=== PATIENT | female | born 1995 | race Caucasian/White ===

== ENCOUNTER 2019-02-01 02:50 | Inpatient (IN) | payer MEDICAID ==
[2019-02-01] VITALS (11 sets, daily range): BP systolic 108–140; BP diastolic 60–91
[~2019-02-01] VITALS: Ht 162.5 cm; Wt 85.9 kg
--- NOTE | 2019-02-01 18:51 | NUR ---
DAGO OSORIO presented to unit via AMBULATORY from HOME, accompanied by FAMILY FOR INDUCTION OF LABOR. DAGO OSORIO weighed, gowned, voided, and to bed. EFHM and TOCO applied, VS taken. DAGO OSORIO oriented to bed controls, call light, TV, heat, and A/C controls.
[2019-02-01] MEDS ORDERED: LACTATED RINGERS 1,000 ML IV SCH (19:37)
[2019-02-01] MEDS ORDERED: D5 LR IV SOLUTION 1,000 ML IV SCH (19:37)
[2019-02-01] MEDS ORDERED: TERBUTALINE INJ 1 MG/ML (BRETHINE) AMP SC PRN (19:45)
[2019-02-01] MEDS ORDERED: MISOPROSTOL 100 MCG (CYTOTEC) TAB PV PRN (19:45)
[2019-02-01 20:57] LABS: BASOPHILS % (AUTO) 0 % (0-10); EOSINOPHILS # (AUTO) 0.2 10^3/uL (0.0-0.3); EOSINOPHILS % (AUTO) 2 % (0-10); HEMATOCRIT 38 % (35-52); HEMOGLOBIN 12.8 G/DL (11.5-16.0); LYMPHOCYTES # (AUTO) 2.9 X 10^3 (1.0-4.0); LYMPHOCYTES % (AUTO) 24 % (12-44); MEAN CORPUSCULAR HEMOGLOBIN 30 PG (25-34); MEAN CORPUSCULAR HGB CONC 34 G/DL (32-36); MEAN CORPUSCULAR VOLUME 87 FL (80-99); MEAN PLATELET VOLUME 10.4 FL (7.4-10.4); MONOCYTES # (AUTO) 0.7 X 10^3 (0.0-1.0); MONOCYTES % (AUTO) 6 % (0-12); NEUTROPHILS # (AUTO) 8.4 X 10^3 (1.8-7.8); NEUTROPHILS % (AUTO) 69 % (42-75); PLATELET COUNT 254 10^3/uL (130-400); RED CELL DISTRIBUTION WIDTH 13.7 % (10.0-14.5); WHITE BLOOD COUNT 12.2 10^3/uL (4.3-11.0)
[2019-02-01] MEDS ORDERED: CATHETER FLUSH 10 ML SYR IV SCH (22:00)
[2019-02-01] MEDS ORDERED: FAMOTIDINE 20MG/2ML IV (PEPCID) ONE (23:09)
[2019-02-01] MEDS ORDERED: METOCLOPRAMIDE INJ 10 MG/2 ML (REGLAN) ONE (23:09)
[2019-02-01] MEDS ORDERED: CITRIC ACID/SOB CIT (BICITRA) 30 ML UDC ONE (23:09)
[2019-02-01] MEDS ORDERED: LACTATED RINGERS 0 ML IV ONE (23:10)
[2019-02-02] VITALS (31 sets, daily range): BP systolic 99–145; BP diastolic 55–92
[2019-02-02] MEDS ORDERED: SUFENTA 0.6MCG/ML BUPIVA 0.125 100 ML ONE (04:12)
[2019-02-02] MEDS ORDERED: BUPIVACAINE SPINAL 0.75% (SENSORCAINE) 2 ML AMP ONE (04:27)
[2019-02-02] MEDS ORDERED: LIDOCAINE/EPI 2% 1:200,00 (XYLOCAINE) 10 ML VIAL ONE (04:31)
[2019-02-02] MEDS ORDERED: OXYTOCIN/NORMAL SALINE 500 ML IV ONE ×2 (04:31→05:31)
--- NOTE | 2019-02-02 04:45 | NUR ---
of female . Nuchal x1, to mother's chest. see notes. 0455-placenta delivered. Pitocin started. 0505-perinum repaired per dr Thayer.
--- NOTE | 2019-02-02 04:51 | Progress Note ---
Standard Progress Note Progress Notes/Assess & Plan Date Seen by a Provider: Feb 02, 2019 Time Seen by a Provider: 04:30 Progress/Assessment & Plan Called to OB for Labor pain management. Upon arrival to Pt room pt states the urge to push. Dr. Thayer preformed a vaginal exam and patient was complete. At this time pt is too far dilatated for Labor Pain management. GINETTE BARRAGAN CRNA Feb 02, 2019 04:51
--- NOTE | 2019-02-02 05:15 | NUR ---
Fundus firm at umbilicus. moderate flow. no clots noted. ria care done 0530-fundus firm. pads changed 0545-fundus firm
--- NOTE | 2019-02-02 05:42 | OB Labor & Delivery Record ---
Vag Delivery Note Vag Delivery Note Date of Delivery: 02/02/19 Preoperative Diagnosis: Ivanna Verdugo is a 23 /Para 1/0 ,Gestational Age (wks)40with 4 days Postoperative Diagnosis: Same Surgeon: MICHELLE SIMS Cloth Shrinking Supervisor: Regina [place], OMS3 Anesthesia: None Delivery Type: Spontaneous vaginal delivery Findings: Viable female , apgars 7/8, weight 6#9 Lacerations: Intact placenta with 3 vessel cord. Nuchal cord x 1, delivered through, body cord or shoulder dystocia Estimated Blood Loss: 350 ml Complications: None Condition: Stable Description of Procedure: The patient is a 23 year old female who presented for induction of labor due to approaching postdates. She was admitted and informed consent was obtained. Her labor course was remarkable for intermittent prolonged decelerations with good recovery and long periods of category I tracing between decelerations, possible terminal bradycardia for last 10 minutes prior to delivery- unable to trace heart tones well. She progressed to complete dilatation and began to push. She was then set up for delivery. The 's head was delivered atraumatically in the DAVE position. Nuchal cord x 1 delivered through. The shoulders and remainder of the infant's body were then delivered without difficulty. Upon delivery, the infant was placed on maternal abdomen. The cord was doubly clamped and cut and the infant was handed off to the pediatric staff. An intact placenta with 3-vessel cord delivered via Dennis and there was found to be minimal bleeding.~ Vigorous fundal massage was performed and the fundus was found to be firm. IV oxytocin was given. Examination of the vagina and perineum revealed a right periurethral laceration repaired in the usual fashion with 3-0 Rapide suture. Following the repair, sponge, instrument and needle counts were correct. Mom and baby were both in stable condition in the labor suite. Vitals - Labs Vital Signs - I&O Vital Signs Date Time Temp Pulse Resp B/P (MAP) Pulse Ox O2 Delivery O2 Flow Rate FiO2 02/02/19 00:00 75 20 111/55 (73) Non Rebreather 15.00 02/01/19 23:40 36.5 72 18 130/79 (96) Non Rebreather 15.00 02/01/19 23:20 95 18 140/91 (107) Non Rebreather 15.00 02/01/19 23:00 72 18 137/74 (95) 02/01/19 22:56 Non Rebreather 15.00 02/01/19 22:40 72 137/74 (95) 15.00 02/01/19 22:20 72 18 123/60 (81) 02/01/19 22:00 69 18 124/76 (92) 02/01/19 21:40 73 18 115/70 (85) 02/01/19 21:20 72 18 108/68 (81) 02/01/19 20:40 36.4 82 18 128/78 (95) 02/01/19 19:45 90 18 124/79 (94) 02/01/19 19:30 36.3 90 18 117/76 (90) Labs Laboratory Tests 02/01/19 20:30: White Blood Count 12.2H, Red Blood Count 4.31L, Hemoglobin 12.8, Hematocrit 38, Mean Corpuscular Volume 87, Mean Corpuscular Hemoglobin 30, Mean Corpuscular Hemoglobin Concent 34, Red Cell Distribution Width 13.7, Platelet Count 254, Mean Platelet Volume 10.4, Neutrophils (%) (Auto) 69, Lymphocytes (%) (Auto) 24, Monocytes (%) (Auto) 6, Eosinophils (%) (Auto) 2, Basophils (%) (Auto) 0, Neutrophils # (Auto) 8.4H, Lymphocytes # (Auto) 2.9, Monocytes # (Auto) 0.7, Eosinophils # (Auto) 0.2, Basophils # (Auto) 0.0 MICHELLE SIMS MD Feb 02, 2019 05:42
--- NOTE | 2019-02-02 05:48 | History & Physical-OB ---
OB - Chief Complaint & HPI Date/Time Date of Admission: Date of Admission: Feb 01, 2019 at 18:51 Date seen by a Provider: Feb 02, 2019 Time Seen by a Provider: 23:10 Chief Complaint/History OB-Reason for Admission/Chief: Induction of Labor Hx : 1 Hx Para: 0 Expected Date of Delivery: Jan 30, 2019 Gestational Age in Weeks: 40 Gestational Age in Days: 2 History of Labs A+, antibody neg, RI. HIV/HepB/RPR NR, GBS neg. Allergies and Home Medications Allergies Coded Allergies: No Known Drug Allergies (Unverified , 02/01/19) Patient Home Medication List Home Medication List Reviewed: No OB - History Hx of Present Ultrasounds: Normal mid trimester US Information Induced Hypertension: No Maternal Gestational Diabetes: No Hemorrhage: No Obstetrical History Hx : 1 Hx Para: 0 Hx # Term Pregnancies: 0 Hx # Pregnancies: 0 Number of Living Children: 0 Hx Termination: No Hx Multiple Gestation: No Hx Ectopic : No Hx Stillbirth: No Hx Complication: No Hx Induced Hypertens: No Hx Maternal Gestational Diabet: No Hx Hemorrhage: No Delivery History Hx Dystocia: No Hx Forceps Assisted Delivery: No Hx Vacuum Extraction Assisted: No Hx Placenta Abnormality: No Hx Distress: No Hx Large For Gestational Age I: No Hx Small for Gestational Age I: No Hx Section: No Hx Vaginal Delivery Post C-Sec: No Hx Blood Disorders: No Adverse Rxn to Tranfusion: No Patient Past Medical History PMHx: Depression SurgHx: None Social History/Family History HIV/AIDS: No Recent Infectious Disease Expo: No Sexually Transmitted Disease: No Alcohol Use: Denies Use Recreational Drug Use: No Smoking Cessation: Never smoker Immunizations Hepatitis A: Yes Hepatitis B: Yes Rubella: immune RPR/VDRL: Negative GBS Status: Negative HBsAG: Negative OB - Admission Exam Physical Exam Vitals: Vital Signs 02/01/19 02/02/19 23:40 00:00 Temp 36.5 Pulse 75 Resp 20 B/P (MAP) 111/55 (73) O2 Delivery Non Rebreather O2 Flow Rate 15.00 Abdomen: Gravid Cervical Dilatation: 2cm Effacement: 50% Station: 0 Membranes: Intact Heart Rate: 140's Decelerations: Prolonged Decelerations Short Term Variability: Present Tooth Clerk Variability: Average (6-25) Contractions on Admission: None Contreras Scoring Tool (Modified) Dilation (cm): 1-2cm (1) Effacement (%): 0-30% (0) Descent/Station: -3 (0) Cervix Consistency: Soft (2) Cervix Position: Middle/Mid-Position (1) Subtract 1 point for: Nulliparity (-1) Contreras Score: 3 Labs Laboratory Tests Test 02/01/19 20:30 Range/Units White Blood Count 12.2 H 4.3-11.0 10^3/uL Red Blood Count 4.31 L 4.35-5.85 10^6/uL Hemoglobin 12.8 11.5-16.0 G/DL Hematocrit 38 35-52 % Mean Corpuscular Volume 87 80-99 FL Mean Corpuscular Hemoglobin 30 25-34 PG Mean Corpuscular Hemoglobin Concent 34 32-36 G/DL Red Cell Distribution Width 13.7 10.0-14.5 % Platelet Count 254 130-400 10^3/uL Mean Platelet Volume 10.4 7.4-10.4 FL Neutrophils (%) (Auto) 69 42-75 % Lymphocytes (%) (Auto) 24 12-44 % Monocytes (%) (Auto) 6 0-12 % Eosinophils (%) (Auto) 2 0-10 % Basophils (%) (Auto) 0 0-10 % Neutrophils # (Auto) 8.4 H 1.8-7.8 X 10^3 Lymphocytes # (Auto) 2.9 1.0-4.0 X 10^3 Monocytes # (Auto) 0.7 0.0-1.0 X 10^3 Eosinophils # (Auto) 0.2 0.0-0.3 10^3/uL Basophils # (Auto) 0.0 0.0-0.1 10^3/uL OB - Assessment/Plan/Diagnosis Assessment Assessment: induction of labor Admission Dx Induction of labor 40 weeks gestation Admission Status: Inpatient Order (span 2 midnights) Reason for Inpatient Admission: Induction, labor and delivery and course Plan Induction Method: per Misoprostol Protocol Other Plan Intermittent deep, prolonged decelerations noted with resolution to category I tracing for 30-60 minutes between, will monitor very closely, have low threshold for . MICHELLE SIMS MD Feb 02, 2019 05:48
[2019-02-02] MEDS ORDERED: IBUPROFEN 600 MG (MOTRIN) TAB PO ONE (07:15)
--- NOTE | 2019-02-02 07:46 | NUR ---
report given to Mery Heller
--- NOTE | 2019-02-02 08:00 | NUR ---
CARE ASSUMED OF THIS PT. ASSISTED UP TO THE BATHROOM. VOIDED LARGE AMOUNT. PERICARE WITH PAD CHANGE. FF U/1. VAG FLOW LT/MOD RUBRA. GOWN CHANGE.
[2019-02-02] MEDS ORDERED: BENZOCAINE/MENTHOL (DERMOPLAST) 56 ML CAN TP ONE (08:15)
[2019-02-02] MEDS ORDERED: WITCH HAZEL(TUCKS) 40 EA JAR ONE (08:15)
--- NOTE | 2019-02-02 08:15 | NUR ---
TRANSFERRED TO ROOM 312 VIA W/C IN STABLE CONDITION ACC BY THIS RN, FRIEND, AND S.O. ASSISTED TO BED. ORIENTED TO SURROUNDINGS, CALL LIGHT OPERATION, ROOM SERVICE PROCEDURE, AND INFORMATION PAPERS. FF U/1. VAG FLOW LIGHT RUBRA.
[2019-02-02] MEDS ORDERED: OXYTOCIN/NORMAL SALINE 500 ML IV SCH (08:50)
[2019-02-02] MEDS ORDERED: WITCH HAZEL(TUCKS) 40 EA JAR TOP PRN (09:00)
[2019-02-02] MEDS ORDERED: BENZOCAINE/MENTHOL (DERMOPLAST) 56 ML CAN TP PRN (09:00)
[2019-02-02] MEDS ORDERED: TETANUS,DIPTH,PERTUSS P/F (BOOSTRIX) 0.5 ML VIAL IM ONE (09:00)
--- NOTE | 2019-02-02 09:00 | NUR ---
FF U/1. VAG FLOW LT/MOD RUBRA. DENIES NEED FOR ICE PACK. ORDERING BREAKFAST. REMAINS IN ROOM. FAMILY AT BEDSIDE. GOOD INTERACTION NOTED.INFORMED OF NEED TO ASK FOR ASSISTANCE NEEDED IF LIGHTHEADED WHEN GETTING UP.
--- NOTE | 2019-02-02 11:00 | NUR ---
CONTINUES TO DO WELL. STATES VOIDED AGAIN AND PERFORMED PERICARE WITHOUT PROBLEMS. FAMILY REMAINS AT BEDSIDE. INFANT REMAINS IN ROOM.
[2019-02-02] MEDS: IBUPROFEN 600 MG (MOTRIN) TAB PO SCH ×2 (12:35→18:15)
[2019-02-02] MEDS: DOCUSATE SODIUM 100 MG (COLACE) CAP PO SCH (12:35)
[2019-02-02] MEDS ORDERED: CATHETER FLUSH 10 ML SYR IV SCH (14:00)
--- NOTE | 2019-02-02 14:00 | NUR ---
NO CHANGE IN STATUS. CONTINUES TO DENY PAIN.
--- NOTE | 2019-02-02 16:30 | NUR ---
VSS. PT HAS BEEN RESTING IN ROOM. FAMILY AND AT BEDSIDE. DENIES ANY WANTS OR NEEDS.
--- NOTE | 2019-02-02 18:15 | NUR ---
ROUTINE MOTRIN GIVEN. PT. DECLINED FLU AND TDAP.
[2019-02-03] MEDS: IBUPROFEN 600 MG (MOTRIN) TAB PO SCH ×4 (00:17→18:20)
[2019-02-03] MEDS: DOCUSATE SODIUM 100 MG (COLACE) CAP PO SCH ×2 (00:17→10:49)
[2019-02-03 00:20] VITALS: BP 117/66
[2019-02-03 05:17] VITALS: BP 104/59
[2019-02-03 06:34] LABS: BASOPHILS % (AUTO) 0 % (0-10); EOSINOPHILS # (AUTO) 0.2 10^3/uL (0.0-0.3); EOSINOPHILS % (AUTO) 2 % (0-10); HEMATOCRIT 36 % (35-52); HEMOGLOBIN 11.9 G/DL (11.5-16.0); LYMPHOCYTES # (AUTO) 3.4 X 10^3 (1.0-4.0); LYMPHOCYTES % (AUTO) 33 % (12-44); MEAN CORPUSCULAR HEMOGLOBIN 29 PG (25-34); MEAN CORPUSCULAR HGB CONC 33 G/DL (32-36); MEAN CORPUSCULAR VOLUME 89 FL (80-99); MEAN PLATELET VOLUME 9.9 FL (7.4-10.4); MONOCYTES # (AUTO) 0.6 X 10^3 (0.0-1.0); MONOCYTES % (AUTO) 6 % (0-12); NEUTROPHILS # (AUTO) 6.3 X 10^3 (1.8-7.8); NEUTROPHILS % (AUTO) 60 % (42-75); PLATELET COUNT 217 10^3/uL (130-400); RED CELL DISTRIBUTION WIDTH 14.2 % (10.0-14.5); WHITE BLOOD COUNT 10.5 10^3/uL (4.3-11.0)
--- NOTE | 2019-02-03 07:40 | Progress Note ---
Subjective Subjective/Events-last exam Afebrile, no acute events. Denies chest pain, shortness of breath dizziness. Bleeding decreasing, pain controlled. Objective Exam Last Set of Vital Signs Vital Signs Date Time Temp Pulse Resp B/P (MAP) Pulse Ox O2 Delivery O2 Flow Rate FiO2 02/03/19 05:17 36.7 73 18 104/59 (74) 99 Room Air 02/02/19 04:20 15.00 Capillary Refill : I&O Intake and Output 02/03/19 00:00 Intake Total 500 ml Balance 500 ml Intake IV Total 500 ml Results/Procedures Lab Laboratory Tests 02/03/19 06:21: White Blood Count 10.5, Red Blood Count 4.07L, Hemoglobin 11.9, Hematocrit 36, Mean Corpuscular Volume 89, Mean Corpuscular Hemoglobin 29, Mean Corpuscular Hemoglobin Concent 33, Red Cell Distribution Width 14.2, Platelet Count 217, Mean Platelet Volume 9.9, Neutrophils (%) (Auto) 60, Lymphocytes (%) (Auto) 33, Monocytes (%) (Auto) 6, Eosinophils (%) (Auto) 2, Basophils (%) (Auto) 0, Neutrophils # (Auto) 6.3, Lymphocytes # (Auto) 3.4, Monocytes # (Auto) 0.6, Eosinophils # (Auto) 0.2, Basophils # (Auto) 0.0 Assessment/Plan Assessment/Plan (1) (spontaneous vaginal delivery) Status: Acute Assessment & Plan: Routine care Clinical Quality Measures DVT/VTE Risk/Contraindication: Risk Factor Score Per Nursin RFS Level Per Nursing on Admit: 1=Low/No VTE PPX MICHELLE SIMS MD Feb 03, 2019 07:40
[2019-02-03 08:00] VITALS: BP 115/63
--- NOTE | 2019-02-03 08:00 | NUR ---
CARING FOR INFANT IN ROOM. DOING WELL. S.O. AT BEDSIDE.
--- NOTE | 2019-02-03 10:00 | NUR ---
OFFERS NO COMPLAINTS. FAMILY AT BEDSIDE. .
[2019-02-03 13:00] VITALS: BP 128/71
--- NOTE | 2019-02-03 13:00 | NUR ---
CONTINUES TO CARE FOR IN ROOM. DENIES ANY PAIN.
[2019-02-03] MEDS ORDERED: IBUP-844 PO (13:12)
[2019-02-03] MEDS ORDERED: PREN-142 PO (13:15)
--- NOTE | 2019-02-03 13:16 | Discharge Instructions ---
Discharge Inst-Women[facility] Serv Depart Medications New, Converted or Re-Newed RX: Transmitted to Pharmacy New Medications: Vit No.124/Iron/FA ( Vitamin Tablet) 1 Each Tablet 1 EACH PO DAILY, #30 TAB 11 Refills Ibuprofen (Ibu) 600 Mg Tablet 600 MG PO Q6HR PRN for PAIN-MODERATE, #60 TAB 0 Refills Follow Up/Instructions Goal/Follow Up: Follow up with Dr. Thayer in 6 weeks for visit. Activity Activity: Activity as Tolerated (avoid strenuous activity x 6 weeks) Driving Instructions: You May Drive NO SMOKING: NO SMOKING Nothing Inside Vagina: No Douching, No [place], No Tampons Diet Discharge Diet: No Restrictions Symptoms to Report to : Bleeding Excessive, Fever Over 101 Degrees F, Pain/Pressure in Chest, Vaginal Bleeding Increase, Vaginal Discharge Foul, Shortness of Breath For Any Problems or Questions: Contact Your Physician Copies To 1: MICHELLE THAYER MD, BETHANY N MD Feb 03, 2019 13:16
--- NOTE | 2019-02-03 15:56 | Discharge Summary ---
Discharge Summary Hospital Course Problems Reviewed?: Yes Problems/Diagnosis: (1) (spontaneous vaginal delivery) Status: Acute Assessment & Plan: Routine care (2) Encounter for induction of labor Status: Resolved Resolution Date/Time: 02/03/19 @ 15:55 Hospital Course Date of Admission: Feb 01, 2019 at 18:51 Admission Diagnosis : Family Physician/Provider: Michelle Thayer MD Date of Discharge: 02/03/19 Discharge Diagnosis: See problems Hospital Course: Uncomplicated spontaneous vaginal delivery with routine course. Labs and Pending Lab Test: Laboratory Tests 02/03/19 06:21: White Blood Count 10.5, Red Blood Count 4.07L, Hemoglobin 11.9, Hematocrit 36, Mean Corpuscular Volume 89, Mean Corpuscular Hemoglobin 29, Mean Corpuscular Hemoglobin Concent 33, Red Cell Distribution Width 14.2, Platelet Count 217, Mean Platelet Volume 9.9, Neutrophils (%) (Auto) 60, Lymphocytes (%) (Auto) 33, Monocytes (%) (Auto) 6, Eosinophils (%) (Auto) 2, Basophils (%) (Auto) 0, Neutrophils # (Auto) 6.3, Lymphocytes # (Auto) 3.4, Monocytes # (Auto) 0.6, Eosinophils # (Auto) 0.2, Basophils # (Auto) 0.0 Home Meds Active Vitamin Tablet ( Vit No.124/Iron/FA) 1 Each Tablet 1 Each PO DAILY Ibu (Ibuprofen) 600 Mg Tablet 600 Mg PO Q6HR PRN Assessment/Pt DC Instructions See above Discharge Physical Examination Allergies: Coded Allergies: No Known Drug Allergies (Unverified , 02/01/19) General Appearance: No Apparent Distress, WD/WN Respiratory: Lungs Clear, Normal Breath Sounds Cardiovascular: Regular Rate, Rhythm, No Murmur Skin: Normal Color, Warm/Dry Neurologic/Psychiatric: Alert, Normal Mood/Affect Discharge Summary Date of Admission Feb 01, 2019 at 18:51 Date of Discharge Discharge Date: Feb 03, 2019 Clinical Quality Measures DVT/VTE Risk/Contraindication: Risk Factor Score Per Nursin RFS Level Per Nursing on Admit: 1=Low/No VTE PPX MICHELLE THAYER MD Feb 03, 2019 15:56
[2019-02-03 16:30] VITALS: BP 115/79
--- NOTE | 2019-02-03 16:35 | NUR ---
DISCHARGE INSTRUCTIONS REVIEWED WITH COPY TO PT. STATES UNDERSTANDING OF ALL INSTRUCTIONS AND NEED TO F/U SCHEDULED AND NEEDED.
[2019-02-03 18:30] VITALS: BP 115/79
--- NOTE | 2019-02-03 18:30 | NUR ---
DISMISSED FROM WS IN STABLE CONDITION. PT WILL REMAIN A ROOMING IN PARENT R/T INFANT NEEDING TO STAY. PT'S FATHER COMING WITH PRESCRIPTIONS.
== END 2019-02-03 18:30 | disposition home or self-care (01) | DRG 807 ==
LOC: LDRP 18:51
PROVIDERS: ADMIT Family Medicine; ATTEND Family Medicine
PROC: 3E0P7VZ Introduction of Hormone into Female Reproductive, Via Natural or Artificial Opening (ICD-10-PCS; 2019-02-01)
PROC: 10E0XZZ Delivery of Products of Conception, External Approach (ICD-10-PCS; principal; 2019-02-02)
PROC: 0UQMXZZ Repair Vulva, External Approach (ICD-10-PCS; 2019-02-02)
DX: O48.0 Post-term pregnancy (principal); O76 Abnormality in fetal heart rate and rhythm complicating labor and delivery; O71.82 Other specified trauma to perineum and vulva; O69.81X0 Labor and delivery complicated by cord around neck, without compression, not applicable or unspecified; Z37.0 Single live birth; Z3A.40 40 weeks gestation of pregnancy
CPT/HCPCS: 36415; 85025; 86850; 86900; 86901; 88307

== ENCOUNTER 2019-02-07 20:20 | Observation (INO) | payer MEDICAID ==
[~2019-02-07] VITALS: Ht 162 cm; Wt 85.7 kg
[~2019-02-07 20:20] MED LIST: IBUP-844 PO; PREN-142 PO
[2019-02-07] MEDS ORDERED: LACTATED RINGERS 1,000 ML IV ONE ×2 (20:36→22:46)
[2019-02-07 21:02] LABS: BASOPHILS % (AUTO) 0 % (0-10); EOSINOPHILS # (AUTO) 0.1 10^3/uL (0.0-0.3); EOSINOPHILS % (AUTO) 1 % (0-10); HEMATOCRIT 38 % (35-52); HEMOGLOBIN 12.9 G/DL (11.5-16.0); LYMPHOCYTES # (AUTO) 0.8 X 10^3 (1.0-4.0); LYMPHOCYTES % (AUTO) 8 % (12-44); MEAN CORPUSCULAR HEMOGLOBIN 29 PG (25-34); MEAN CORPUSCULAR HGB CONC 34 G/DL (32-36); MEAN CORPUSCULAR VOLUME 88 FL (80-99); MEAN PLATELET VOLUME 9.5 FL (7.4-10.4); MONOCYTES # (AUTO) 0.4 X 10^3 (0.0-1.0); MONOCYTES % (AUTO) 4 % (0-12); NEUTROPHILS # (AUTO) 9.8 X 10^3 (1.8-7.8); NEUTROPHILS % (AUTO) 88 % (42-75); PLATELET COUNT 217 10^3/uL (130-400); RED CELL DISTRIBUTION WIDTH 13.9 % (10.0-14.5); WHITE BLOOD COUNT 11.2 10^3/uL (4.3-11.0)
[2019-02-07 21:05] LABS: BILIRUBIN,URINE NEGATIVE (NEGATIVE); CLARITY,URINE CLEAR; COLOR,URINE YELLOW; GLUCOSE, URINE (UA) NEGATIVE (NEGATIVE); KETONES,URINE NEGATIVE (NEGATIVE); LEUKOCYTE ESTERASE ,URINE 3+ (NEGATIVE); NITRITE,URINE NEGATIVE (NEGATIVE); PH,URINE 6 (5-9); PROTEIN,URINE 3+ (NEGATIVE); UROBILINOGEN,URINE NORMAL (NORMAL)
[2019-02-07 21:14] LABS: BACTERIA,URINE LARGE /HPF; RBC,URINE 50-100 /HPF; WBC,URINE TNTC /HPF
[2019-02-07 21:14] LABS: INR 0.9 (0.8-1.4)
[2019-02-07 21:21] LABS: ALANINE AMINOTRANSFERASE 19 U/L (0-55); ALBUMIN 3.8 GM/DL (3.2-4.5); ALKALINE PHOSPHATASE 114 U/L (40-136); AMYLASE 46 U/L (25-125); BILIRUBIN,TOTAL 0.4 MG/DL (0.1-1.0); BUN/CREATININE RATIO 21; CALCIUM 9.2 MG/DL (8.5-10.1); CARBON DIOXIDE 20 MMOL/L (21-32); CHLORIDE 109 MMOL/L (98-107); GFR ESTIMATED > 60; GLUCOSE 95 MG/DL (70-105); LIPASE 38 U/L (8-78); MAGNESIUM 1.8 MG/DL (1.6-2.4); POTASSIUM 3.6 MMOL/L (3.6-5.0); SODIUM 140 MMOL/L (135-145)
[2019-02-07 21:24] LABS: BAND NEUTROPHILS 3 %; BASOPHILS % (MANUAL) 1 %; EOSINOPHILS % (MANUAL) 1 %; LYMPHOCYTES % (MANUAL) 5 %; MONOCYTES % (MANUAL) 4 %; NEUTROPHILS % (MANUAL) 86 %; RBC MORPH NORMAL
[2019-02-07] MEDS ORDERED: cefTRIAXone FOR IV USE 1,000 MG in WATER (STERILE) FOR INJECTION 10 ML IV ONE (21:30)
--- NOTE | 2019-02-07 21:35 | Diagnostic Imaging Report ---
INDICATION: Fever, 5 days . PA and lateral chest obtained at 0932 p.m. Heart and mediastinal silhouette are normal in appearance. The lungs are clear. There is no pneumothorax or pleural fluid. IMPRESSION: Negative chest. Dictated by: Dictated on workstation # [id number]
[2019-02-07 21:40] LABS: TSH (THYROID ANALYZER) 0.82 UIU/ML (0.35-4.94)
[2019-02-07] MEDS ORDERED: ACETAMINOPHEN 500 MG TAB (TYLENOL) PO ONE (21:45)
--- NOTE | 2019-02-07 22:08 | Diagnostic Imaging Report ---
INDICATION: Status , with abdominal pain. EXAM: CT abdomen and pelvis obtained without IV contrast. COMPARISON: There is no prior study for comparison. FINDINGS: The visualized portions of the lung bases are clear. There are no pleural fluid collections. There is no free intraperitoneal air. The liver shows no focal abnormality. The gallbladder is contracted. The spleen appears unremarkable. The adrenals and pancreas appear normal. The kidneys bilaterally are unremarkable. There is no radiopaque stone or hydronephrosis. There is no retroperitoneal mass or adenopathy. There is no ascites or abnormal fluid collection. The appendix appears unremarkable. The uterus is prominent in size as expected . There is no pelvic hematoma or free fluid. IMPRESSION: Prominent uterus as expected . No acute abnormality visualized in the abdomen or pelvis. There is no renal stone or hydronephrosis. Dictated by: Dictated on workstation # [id number]
[2019-02-07] MEDS ORDERED: NS IV 1000 ML 1,000 ML IV ONE (22:46)
[2019-02-07] MEDS ORDERED: KETOROLAC 30 MG/ML VIAL IVP ONE (23:00)
[2019-02-08 00:15] VITALS: BP 136/76
[2019-02-08] MEDS: NS IV 1000 ML 1,000 ML IV SCH ×5 (00:30→15:35)
[2019-02-08] MEDS ORDERED: ONDANSETRON 4 MG/2 ML (SDV) Z0FRAN IVP PRN (00:30)
[2019-02-08 04:10] VITALS: BP 135/90
[2019-02-08] MEDS ORDERED: KETOROLAC 30 MG/ML VIAL IVP PRN (05:00)
--- NOTE | 2019-02-08 05:39 | ED General ---
General Chief Complaint: Fever-Adult/Adol Stated Complaint: UTI/PYELONEPHRITIS;SEPSIS;POST Nursing Triage Note: PT PRESENTS TO ROOM SEVEN AMBULATORY C/O FEVER, CHILLS AND CONN W/FLANK PAIN THAT ONSET INITIALLY LOWER BACK PAIN 2 DAYS AGO. PT STATES SHE IS FIVE DAYS POST . DENIES PURULENT VAGINAL DRAINAGE, STATES SHE HAS HAD INTERMITTENT BURING WITH URINATION THAT ONSET TODAY. Nursing Sepsis Screen: No Definite Risk Source of Information: Patient History of Present Illness Date Seen by Provider: Feb 07, 2019 Time Seen by Provider: 20:05 Initial Comments PT ARRIVES VIA POV FROM HOME STATES SHE BEGAN TO START FEELING BAD AROUND 1700 TODAY WAS HAVING CHILLS AND BODY ACHES--TEMP WAS 102.5. PT TOOK IBUPROFEN 600 MG AT 1800 C/O DIFFUSE LOWER BACK PAIN AND BILATERAL FLANK PAIN NO NAUSEA/VOMITING/DIARRHEA NO HEADACHE NO NECK PAIN OR STIFFNESS NO COUGH NO CHEST PAIN. STATES SHE FELT A LITTLE SHORT OF BREATH ON THE WAY HERE, BUT NOT NOW. PT DELIVERED 5 DAYS AGO--40+ WEEKS/TERM, INDUCED VAGINAL DELIVERY. NO COMPLICATIONS DURING OR DELIVERY PT IS NO BREAST PAIN, REDNESS OR ENGORGEMENT STATES SHE HAS HAD SOME PROBLEMS WITH URINARY INCONTINENCE SINCE DELIVERY, BUT NO PAIN OR URGENCY OR FREQUENCY ON URINATION NO ABDOMINAL OR PELVIC PAIN--STATES HER LOWER ABDOMEN IS ONLY SORE IF SHE PUSHES ON IT PT IS HAVING A NORMAL AMOUNT OF LOCHIA. PCP AND OB: DR. SIMS Allergies and Home Medications Allergies Coded Allergies: No Known Drug Allergies (Unverified , 02/01/19) Home Medications Ibuprofen 600 Mg Tablet, 600 MG PO Q6HR PRN for PAIN-MODERATE Prescribed by: MICHELLE SIMS on 02/03/19 1312 Vit No.124/Iron/FA 1 Each Tablet, 1 EACH PO DAILY Prescribed by: MICHELLE SIMS on 02/03/19 1315 Patient Home Medication List Home Medication List Reviewed: Yes Review of Systems Review of Systems Constitutional: see HPI, chills, fever, malaise, weakness EENTM: no symptoms reported; No nose congestion, No throat pain Respiratory: No cough; dyspnea on exertion; No orthopnea, No phlegm; short of breath; No wheezing Cardiovascular: no symptoms reported; No chest pain, No edema, No palpitations, No syncope Gastrointestinal: no symptoms reported; No abdominal pain, No diarrhea, No nausea, No vomiting Genitourinary: see HPI, incontinence Musculoskeletal: see HPI, back pain Skin: no symptoms reported Psychiatric/Neurological: No Symptoms Reported; Denies Headache Hematologic/Lymphatic: No Symptoms Reported Immunological/Allergic: no symptoms reported Past Ipxfjvp-Elfyrp-Qtxmde Hx Patient Social History Alcohol Use: Denies Use Recreational Drug Use: No Smoking Status: Never a Smoker 2nd Hand Smoke Exposure: No Recent Foreign Travel: No Contact w/Someone Who Travel: No Recent Infectious Disease Expo: No Recent Hopitalizations: No Physical Abuse: No Sexual Abuse: No Mistreated: No Fear: No Immunizations Up To Date Tetanus Booster (TDap): Unknown PED Vaccines UTD: No Seasonal Allergies Seasonal Allergies: Yes Past Medical History Surgeries: No Respiratory: No Cardiac: No Neurological: No : No Sexually Transmitted Disease: No HIV/AIDS: No Genitourinary: No Gastrointestinal: No Musculoskeletal: No Endocrine: No HEENT: No Cancer: No Psychosocial: Yes Depression Integumentary: No Blood Disorders: No Adverse Reaction/Blood Tranf: No Family Medical History Pt is adopted. doesnt know much about her biological family Physical Exam Vital Signs Vital Signs - First Documented 02/07/19 20:30 Temp 38.7 Pulse 160 Resp 22 B/P (MAP) 140/102 (115) Pulse Ox 99 O2 Delivery Room Air Capillary Refill : Less Than 3 Seconds Height, Weight, BMI Height: '" Weight: lbs. oz. kg; 32.00 BMI Method: General Appearance: No Apparent Distress, WD/WN HEENT: PERRL/EOMI, TMs Normal, Normal ENT Inspection, Pharynx Normal Neck: Full Range of Motion, Normal Inspection, Non Tender, Supple Respiratory: Normal Breath Sounds, No Accessory Muscle Use, No Respiratory Distress, Other (SLIGHTLY DYSPNEIC/TACHYPNEIC ON ARRIVAL) Cardiovascular: No Edema, No JVD, No Murmur, Normal Peripheral Pulses, Tachycardia (140'S ON EXAM, WAS 160 ON ARRIVAL ) Gastrointestinal: Normal Bowel Sounds, No Organomegaly, No Pulsatile Mass, Other (FUNDUS AT UMBILICUS, ONLY MILDLY TENDER. VERY TENDER BILATERAL FLANK AND LOWER BACK AREAS) Back: No Vertebral Tenderness, CVA Tenderness (L), CVA Tenderness (R) Extremity: Normal Capillary Refill, Normal Inspection, Normal Range of Motion, Non Tender, No Calf Tenderness, No Pedal Edema Neurologic/Psychiatric: Alert, Oriented x3, No Motor/Sensory Deficits, Normal M ood/Affect, energy advisor II-XII Norm as Tested Skin: Normal Color, Warm/Dry; No Rash Focused Exam Lactate Level 02/07/19 21:18: Lactic Acid Level 0.81 Progress/Results/Core Measures Suspected Sepsis Recent Fever Within 48 Hours: Yes Infection Criteria Present: Suspected New Infection New/Unexplained Altered Menta: No Sepsis Screen: No Definite Risk SIRS Temperature: Pulse: 126 Respiratory Rate: 18 Laboratory Tests 02/07/19 20:44: White Blood Count 11.2H Blood Pressure 135 /90 Mean: 105 02/07/19 21:18: Lactic Acid Level 0.81 Laboratory Tests 02/07/19 20:44: Creatinine 0.80, INR Comment 0.9, Platelet Count 217, Total Bilirubin 0.4 Results/Orders Lab Results Laboratory Tests Test 02/07/19 20:44 02/07/19 20:54 02/07/19 21:18 Range/Units White Blood Count 11.2 H 4.3-11.0 10^3/uL Red Blood Count 4.39 4.35-5.85 10^6/uL Hemoglobin 12.9 11.5-16.0 G/DL Hematocrit 38 35-52 % Mean Corpuscular Volume 88 80-99 FL Mean Corpuscular Hemoglobin 29 25-34 PG Mean Corpuscular Hemoglobin Concent 34 32-36 G/DL Red Cell Distribution Width 13.9 10.0-14.5 % Platelet Count 217 130-400 10^3/uL Mean Platelet Volume 9.5 7.4-10.4 FL Neutrophils (%) (Auto) 88 H 42-75 % Lymphocytes (%) (Auto) 8 L 12-44 % Monocytes (%) (Auto) 4 0-12 % Eosinophils (%) (Auto) 1 0-10 % Basophils (%) (Auto) 0 0-10 % Neutrophils # (Auto) 9.8 H 1.8-7.8 X 10^3 Lymphocytes # (Auto) 0.8 L 1.0-4.0 X 10^3 Monocytes # (Auto) 0.4 0.0-1.0 X 10^3 Eosinophils # (Auto) 0.1 0.0-0.3 10^3/uL Basophils # (Auto) 0.0 0.0-0.1 10^3/uL Neutrophils % (Manual) 86 % Lymphocytes % (Manual) 5 % Monocytes % (Manual) 4 % Eosinophils % (Manual) 1 % Basophils % (Manual) 1 % Band Neutrophils 3 % Blood Morphology Comment NORMAL Prothrombin Time 13.0 12.2-14.7 SEC INR Comment 0.9 0.8-1.4 Activated Partial Thromboplast Time 27 24-35 SEC Sodium Level 140 135-145 MMOL/L Potassium Level 3.6 3.6-5.0 MMOL/L Chloride Level 109 H 98-107 MMOL/L Carbon Dioxide Level 20 L 21-32 MMOL/L Anion Gap 11 5-14 MMOL/L Blood Urea Nitrogen 17 7-18 MG/DL Creatinine 0.80 0.60-1.30 MG/DL Estimat Glomerular Filtration Rate > 60 BUN/Creatinine Ratio 21 Glucose Level 95 70-105 MG/DL Calcium Level 9.2 8.5-10.1 MG/DL Corrected Calcium 9.4 8.5-10.1 MG/DL Magnesium Level 1.8 1.6-2.4 MG/DL Total Bilirubin 0.4 0.1-1.0 MG/DL Aspartate Amino Transf (AST/SGOT) 16 5-34 U/L Alanine Aminotransferase (ALT/SGPT) 19 0-55 U/L Alkaline Phosphatase 114 40-136 U/L B-Type Natriuretic Peptide 87.1 <100.0 PG/ML Total Protein 7.0 6.4-8.2 GM/DL Albumin 3.8 3.2-4.5 GM/DL Amylase Level 46 25-125 U/L Lipase 38 8-78 U/L TSH [place] Testing 0.82 0.35-4.94 UIU/ML Urine Color YELLOW Urine Clarity CLEAR Urine pH 6 5-9 Urine Specific [place] 1.015 L 1.016-1.022 Urine Protein 3+ H NEGATIVE Urine Glucose (UA) NEGATIVE NEGATIVE Urine Ketones NEGATIVE NEGATIVE Urine Nitrite NEGATIVE NEGATIVE Urine Bilirubin NEGATIVE NEGATIVE Urine Urobilinogen NORMAL NORMAL MG/DL Urine Leukocyte Esterase 3+ H NEGATIVE Urine RBC (Auto) 5+ H NEGATIVE Urine RBC 50-100 H /HPF Urine WBC TNTC H /HPF Urine Crystals NONE /LPF Urine Bacteria LARGE H /HPF Urine Casts NONE /LPF Urine Mucus NEGATIVE /LPF Urine Culture Indicated YES Lactic Acid Level 0.81 0.50-2.00 MMOL/L Micro Results Microbiology 02/07/19 Influenza Types A,B Antigen (KERRY) - Final, Complete My Orders Orders - MATT GRIFFITHS DO Ed Iv/Invasive Line Start (02/07/19 20:36) Monitor-Rhythm Ecg Trace Only (02/07/19 20:36) Straight Cath For Spec.-Adult (02/07/19 20:36) Amylase (02/07/19 20:36) BNP (02/07/19 20:36) Cbc With Automated Diff (02/07/19 20:36) Comprehensive Metabolic Panel (02/07/19 20:36) Lactic Acid Analyzer (02/07/19 20:36) Lipase (02/07/19 20:36) Magnesium (02/07/19 20:36) Protime With Inr (02/07/19 20:36) Partial Thromboplastin Time (02/07/19 20:36) Thyroid Analyzer (02/07/19 20:36) Ua Culture If Indicated (02/07/19 20:36) Blood Culture (02/07/19 20:36) Influenza A And B Antigens (02/07/19 20:36) Ed Iv/Invasive Line Start (02/07/19 20:36) Lactated Ringers (Lr 1000 Ml Iv Solution (02/07/19 20:36) Chest Pa/Lat (2 View) (02/07/19 20:36) Manual Differential (02/07/19 20:44) Urine Culture (02/07/19 20:54) Ceftriaxone For Iv Use (Rocephin For I (02/07/19 21:30) Ct Abd/Pelvis Wo(Kidney Stone) (02/07/19 21:39) Acetaminophen Tablet (Tylenol Tablet) (02/07/19 21:45) Ed Iv/Invasive Line Start (02/07/19 22:46) Ns Iv 1000 Ml (Sodium Chloride 0.9%) (02/07/19 22:46) Lactated Ringers (Lr 1000 Ml Iv Solution (02/07/19 22:46) Ketorolac Injection (Toradol Injection) (02/07/19 23:00) Medications Given in ED Current Medications Medications Dose Ordered Sig/[place] Route Start Time Stop Time Status Last Admin Dose Admin Acetaminophen 1,000 mg ONCE ONCE PO 02/07/19 21:45 02/07/19 21:46 DC 02/07/19 22:06 1,000 MG Ceftriaxone Sodium 1000 mg/ Sterile Water 10 ml @ 200 mls/hr ONCE ONCE IV 02/07/19 21:30 02/07/19 21:32 DC 02/07/19 21:47 200 MLS/HR Lactated Ringer's 1,000 ml @ 0 mls/hr Q0M ONCE IV 02/07/19 20:36 02/07/19 20:38 DC 02/07/19 20:50 1,000 MLS/HR Vital Signs/I&O 02/07/19 02/07/19 02/07/19 02/08/19 20:30 22:01 22:06 00:15 Temp 38.7 38.0 38.6 36.6 Pulse 160 144 113 Resp 22 22 18 B/P (MAP) 140/102 (115) 138/85 136/76 (96) Pulse Ox 99 99 98 O2 Delivery Room Air Room Air 02/08/19 02/08/19 02/08/19 00:15 01:00 04:10 Temp 36.6 37.7 Pulse 115 108 126 Resp 18 18 B/P (MAP) 135/85 (96) 135/90 (105) Pulse Ox 98 100 O2 Delivery Room Air Room Air 02/08/19 00:00 Intake Total 2700 ml Balance 2700 ml Capillary Refill : Less Than 3 Seconds Blood Pressure Mean: 105 Progress Note : Progress Note NO DETERIORATION IN PT'S CONDITION DURING ER STAY TEMP AND HEART RATE DOWN, PT IS NOT DYSPNEIC, AND BP AND O2 SAT REMAINED STABLE Diagnostic Imaging Comments CXR--NO ACUTE PROCESS--PER RADIOLOGIST REPORT AT 2137 CT ABDOMEN/PELVIS--NO ACUTE PROCESS. NORMAL POST APPEARANCE OF UTERUS--PER RADIOLOGIST REPORT AT 2228 Reviewed: Reviewed by Me Departure Communication (Admissions) 2237--SPOKE WITH DR. AQUINO, SALESPERSON [employer] FOR OB. ACCEPTS PT FOR ADMIT/OBSERVATION Impression Primary Impression: Sepsis Additional Impressions: UTI/PYELONEPHRITIS 5 DAYS POST VIA PT IS CURRENTLY Disposition: ADMITTED INPATIENT Condition: Stable Admissions Decision to Admit Reason: Admit from ER (General) Decision to Admit/Date: Feb 07, 2019 Time/Decision to Admit Time: 22:40 Departure-Patient Inst. Referrals: MICHELLE SIMS MD (PCP) Primary Care Physician MATT GRIFFITHS DO Feb 08, 2019 05:39
[2019-02-08] MEDS: ACETAMINOPHEN 500 MG TAB (TYLENOL) PO PRN ×3 (05:43→21:15)
[2019-02-08 07:19] LABS: BASOPHILS % (AUTO) 0 % (0-10); EOSINOPHILS % (AUTO) 0 % (0-10); HEMATOCRIT 31 % (35-52); HEMOGLOBIN 10.3 G/DL (11.5-16.0); LYMPHOCYTES # (AUTO) 0.7 X 10^3 (1.0-4.0); LYMPHOCYTES % (AUTO) 9 % (12-44); MEAN CORPUSCULAR HEMOGLOBIN 29 PG (25-34); MEAN CORPUSCULAR HGB CONC 33 G/DL (32-36); MEAN CORPUSCULAR VOLUME 88 FL (80-99); MEAN PLATELET VOLUME 9.4 FL (7.4-10.4); MONOCYTES # (AUTO) 0.3 X 10^3 (0.0-1.0); MONOCYTES % (AUTO) 3 % (0-12); NEUTROPHILS # (AUTO) 6.9 X 10^3 (1.8-7.8); NEUTROPHILS % (AUTO) 87 % (42-75); PLATELET COUNT 156 10^3/uL (130-400); WHITE BLOOD COUNT 7.9 10^3/uL (4.3-11.0)
[2019-02-08 07:35] VITALS: BP 124/63
[2019-02-08] MEDS: PRENATAL VITAMIN 1 EA TAB PO SCH (07:42)
--- NOTE | 2019-02-08 07:43 | NUR ---
A.M. ASSESSMENT COMPLETED. VS TAKEN. TEMP 38.3 C(100.9 F). C/O HEADACHE BEING ONLY PAIN AT THIS TIME. TORADOL 30 MG IVP FOR C/O HEADACHE. PT ALREADY HAD TYLENOL PRIOR TO THIS SHIFT.
[2019-02-08 07:53] LABS: ALANINE AMINOTRANSFERASE 15 U/L (0-55); ALBUMIN 2.8 GM/DL (3.2-4.5); ALKALINE PHOSPHATASE 88 U/L (40-136); BILIRUBIN,TOTAL 0.6 MG/DL (0.1-1.0); BUN/CREATININE RATIO 16; CALCIUM 7.7 MG/DL (8.5-10.1); CARBON DIOXIDE 19 MMOL/L (21-32); CHLORIDE 116 MMOL/L (98-107); CREATININE SERUM 0.67 MG/DL (0.60-1.30); GFR ESTIMATED > 60; GLUCOSE 96 MG/DL (70-105); POTASSIUM 3.1 MMOL/L (3.6-5.0); SODIUM 141 MMOL/L (135-145); TOTAL PROTEIN 5.1 GM/DL (6.4-8.2)
--- NOTE | 2019-02-08 08:30 | NUR ---
DR. AQUINO IN TO SEE PT ABOUT PLAN OF CARE. INFANT ASLEEP IN OPEN CRIB. TELEMETRY CONTINUES.
[2019-02-08] MEDS ORDERED: KCL 20 MEQ TAB (K-DUR) PO NR (08:45)
--- NOTE | 2019-02-08 09:00 | NUR ---
PT REFUSED FLU VACCINE.
--- NOTE | 2019-02-08 10:30 | NUR ---
PT'S DAD HERE HELPING WITH INFANT. PLAN TO TAKE INFANT TO APPOINTMENT TODAY.
--- NOTE | 2019-02-08 11:43 | History & Physical ---
HPI History of Present Illness: This is a 23 yo female who is 6 days who presented to ED w/ fever and flank pain. Pt reports 2 day history of back/flank pain with onset of fever the day of admission. Pt's temp was 102 in the ER. Pt reports hx of UTIs in the past. Denies any dysuria, denies uterine or breast pain. Pt has vaginal bleeding secondary to state. Source: patient Exam Limitations: no limitations Date seen by provider: Feb 08, 2019 Time Seen by Provider: 08:15 Attending Physician Catracho Dias Bethany N MD Consult Date of Admission Feb 07, 2019 at 22:40 Home Medications Home Medications Reviewed patient Home Medication Reconciliation performed by pharmacy medication reconciliations industrial machine system technician and/or nursing. Patients Allergies have been reviewed. Allergies Coded Allergies: No Known Drug Allergies (Unverified , 02/01/19) BJI-Btscwm-Yzjawa Hx Patient Social History Alcohol Use: Denies Use Recreational Drug Use: No Smoking Status: Never a Smoker 2nd Hand Smoke Exposure: No Recent Foreign Travel: No Contact w/other who traveled: No Recent Hopitalizations: No Recent Infectious Disease Expo: No Immunizations Up To Date Tetanus Booster (TDap): Unknown Past Medical History PMHx: Depression SurgHx: None Family Medical History Family History: Pt is adopted. doesnt know much about her biological family Review of Systems ([facility]) Constitutional: see HPI Reviewed Test Results Reviewed Test Results Lab Laboratory Tests 02/07/19 20:44: White Blood Count 11.2H, Red Blood Count 4.39, Hemoglobin 12.9, Hematocrit 38, Mean Corpuscular Volume 88, Mean Corpuscular Hemoglobin 29, Mean Corpuscular Hemoglobin Concent 34, Red Cell Distribution Width 13.9, Platelet Count 217, Mean Platelet Volume 9.5, Neutrophils (%) (Auto) 88H, Lymphocytes (%) (Auto) 8L, Monocytes (%) (Auto) 4, Eosinophils (%) (Auto) 1, Basophils (%) (Auto) 0, Neutrophils # (Auto) 9.8H, Lymphocytes # (Auto) 0.8L, Monocytes # (Auto) 0.4, Eosinophils # (Auto) 0.1, Basophils # (Auto) 0.0, Neutrophils % (Manual) 86, Lymphocytes % (Manual) 5, Monocytes % (Manual) 4, Eosinophils % (Manual) 1, Basophils % (Manual) 1, Band Neutrophils 3, Blood Morphology Comment NORMAL, Prothrombin Time 13.0, INR Comment 0.9, Activated Partial Thromboplast Time 27, Sodium Level 140, Potassium Level 3.6, Chloride Level 109H, Carbon Dioxide Level 20L, Anion Gap 11, Blood Urea Nitrogen 17, Creatinine 0.80, Estimat Glomerular Filtration Rate > 60, BUN/Creatinine Ratio 21, Glucose Level 95, Calcium Level 9.2, Corrected Calcium 9.4, Magnesium Level 1.8, Total Bilirubin 0.4, Aspartate Amino Transf (AST/SGOT) 16, Alanine Aminotransferase (ALT/SGPT) 19, Alkaline Phosphatase 114, B-Type Natriuretic Peptide 87.1, Total Protein 7.0, Albumin 3.8, Amylase Level 46, Lipase 38, TSH [place] Testing 0.82 02/07/19 20:54: Urine Color YELLOW, Urine Clarity CLEAR, Urine pH 6, Urine Specific [place] 1.015L, Urine Protein 3+H, Urine Glucose (UA) NEGATIVE, Urine Ketones NEGATIVE, Urine Nitrite NEGATIVE, Urine Bilirubin NEGATIVE, Urine Urobilinogen NORMAL, Urine Leukocyte Esterase 3+H, Urine RBC (Auto) 5+H, Urine RBC 50-100H, Urine WBC TNTCH, Urine Crystals NONE, Urine Bacteria LARGEH, Urine Casts NONE, Urine Mucus NEGATIVE, Urine Culture Indicated YES 02/07/19 21:18: Lactic Acid Level 0.81 02/08/19 07:04: White Blood Count 7.9, Red Blood Count 3.54L, Hemoglobin 10.3#L, Hematocrit 31L, Mean Corpuscular Volume 88, Mean Corpuscular Hemoglobin 29, Mean Corpuscular Hemoglobin Concent 33, Red Cell Distribution Width 14.0, Platelet Count 156, Mean Platelet Volume 9.4, Neutrophils (%) (Auto) 87H, Lymphocytes (%) (Auto) 9L, Monocytes (%) (Auto) 3, Eosinophils (%) (Auto) 0, Basophils (%) (Auto) 0, Neutrophils # (Auto) 6.9, Lymphocytes # (Auto) 0.7L, Monocytes # (Auto) 0.3, Eosinophils # (Auto) 0.0, Basophils # (Auto) 0.0, Sodium Level 141, Potassium Level 3.1L, Chloride Level 116H, Carbon Dioxide Level 19L, Anion Gap 6, Blood Urea Nitrogen 11, Creatinine 0.67, Estimat Glomerular Filtration Rate > 60, BUN/Creatinine Ratio 16, Glucose Level 96, Calcium Level 7.7L, Corrected Calcium 8.7, Total Bilirubin 0.6, Aspartate Amino Transf (AST/SGOT) 13, Alanine Aminotransferase (ALT/SGPT) 15, Alkaline Phosphatase 88, Total Protein 5.1L, Albumin 2.8L Microbiology 02/07/19 Influenza Types A,B Antigen (KERRY) - Final, Complete 02/07/19 Urine Culture - Preliminary, Resulted Radiology Date of Exam: 02/07/19 CT ABD/PELVIS WO(KIDNEY STONE) INDICATION: Status , with abdominal pain. EXAM: CT abdomen and pelvis obtained without IV contrast. COMPARISON: There is no prior study for comparison. FINDINGS: The visualized portions of the lung bases are clear. There are no pleural fluid collections. There is no free intraperitoneal air. The liver shows no focal abnormality. The gallbladder is contracted. The spleen appears unremarkable. The adrenals and pancreas appear normal. The kidneys bilaterally are unremarkable. There is no radiopaque stone or hydronephrosis. There is no retroperitoneal mass or adenopathy. There is no ascites or abnormal fluid collection. The appendix appears unremarkable. The uterus is prominent in size as expected . There is no pelvic hematoma or free fluid. IMPRESSION: Prominent uterus as expected . No acute abnormality visualized in the abdomen or pelvis. There is no renal stone or hydronephrosis. Physical Exam-([facility]) Physical Exam Vital Signs VS - Last 72 Hours, by Label 02/07/19 02/07/19 02/07/19 02/08/19 20:30 22:01 22:06 00:15 Temp 38.7 38.0 38.6 36.6 Pulse 160 144 113 Resp 22 22 18 B/P (MAP) 140/102 (115) 138/85 136/76 (96) Pulse Ox 99 99 98 O2 Delivery Room Air Room Air 02/08/19 02/08/19 02/08/19 02/08/19 00:15 01:00 04:10 07:02 Temp 36.6 37.7 Pulse 115 108 126 124 Resp 18 18 B/P (MAP) 135/85 (96) 135/90 (105) Pulse Ox 98 100 O2 Delivery Room Air Room Air 10/9/19 02/08/19 02/08/19 02/08/19 07:35 08:30 12:00 13:04 Temp 38.3 37.7 37.1 Pulse 117 95 96 Resp 22 20 B/P (MAP) 124/63 (83) 136/81 (99) Pulse Ox 96 100 O2 Delivery Room Air Room Air 02/08/19 02/08/19 02/08/19 02/08/19 14:00 14:16 16:00 17:40 Temp 37.6 37.6 38.1 37.3 Pulse 104 Resp 20 B/P (MAP) 127/76 (93) Pulse Ox 96 O2 Delivery Room Air 02/08/19 02/08/19 02/08/19 02/09/19 19:00 21:16 22:07 00:43 Temp 37.3 37.1 Pulse 111 108 82 Resp 20 20 B/P (MAP) 127/83 (98) 123/82 (96) Pulse Ox 97 97 O2 Delivery Room Air Room Air Room Air 02/09/19 02/09/19 02/09/19 02/09/19 01:00 04:17 07:00 08:10 Temp 36.9 36.7 Pulse 85 85 88 97 Resp 20 18 B/P (MAP) 126/87 (100) 139/98 (112) Pulse Ox 98 98 O2 Delivery Room Air Room Air Capillary Refill : Less Than 3 Seconds General Appearance: WD/WN, no apparent distress Respiratory: lungs clear, normal breath sounds, no respiratory distress, no accessory muscle use Cardiovascular: regular rate, rhythm, tachycardia (when febrile) Gastrointestinal: soft; No tenderness (no uterine tenderness) Back: CVA tenderness (R), CVA tenderness (L) Neurologic/Psychiatric: alert, normal mood/affect, oriented x 3 Skin: normal color, warm/dry Assessment/Plan Assessment/Plan Admission Status: Observation (1) fever Status: Acute Assessment & Plan: consistent with pyelonephritis (2) Pyelonephritis Status: Acute Assessment & Plan: ADM: - febrile (Tmax 102), elevated wbc on admit of 11, improved on repeat - urine culture pending; UA c/w UTI - blood cultures pending - started on Rocephin (3) Hypokalemia Status: Acute Assessment & Plan: - CATRACHO Salgado DO Feb 08, 2019 11:43
[2019-02-08 12:00] VITALS: BP 136/81
--- NOTE | 2019-02-08 12:30 | NUR ---
SLEEPING AT INTERVALS. CALF SCDS ON BILATERALLY. TOLERATING WELL.
--- NOTE | 2019-02-08 14:00 | NUR ---
CONTINUING TO MONITOR CLOSELY. INFORMED PT THIS RN WOULD CHANGE SHEETS NEXT TIME SHE IS UP AND FEELS LIKE HAVING THEM CHANGED. STATES UNDERSTANDING.
--- NOTE | 2019-02-08 15:35 | NUR ---
DR. AQUINO NOTIFIED OF PT'S FEVER OF 102.8 F(39.3 C). NEW ORDERS RECEIVED.
[2019-02-08 16:00] VITALS: BP 127/76
--- NOTE | 2019-02-08 17:15 | NUR ---
DR. AQUINO NOTIFIED OF URINE CULTURE RESULTS OF >100,000 GRAM NEGATIVE CARROLL AND NEGATIVE PRELIMINARY BLOOD CULTURES.
--- NOTE | 2019-02-08 17:40 | NUR ---
TEMP 100.5 F. FAMILY MEMBER TAKING HOME TO ALLOW PT TO REST. STATES GETTING A SLIGHT HEADACHE. WATCHING YOU TUBE VIDEOS ON HER PHONE. ENCOURAGED AMBULATION WHEN FEELING UP TO IT. OFFERED TO CHANGE LINENS R/T PERSPIRING TODAY. LINENS TO ROOM. GOWN CHANGED. WILL CHANGE LINENS WHEN PT IS READY. Addendum: 02/08/19 at 1801 by MARTHA MOLINA RN TEMP NOT 100.5. IT IS CURRENTLY 99.6 F (37.3 C)
[2019-02-08] MEDS: IBUPROFEN 600 MG (MOTRIN) TAB PO SCH (17:46)
--- NOTE | 2019-02-08 18:45 | NUR ---
PUMPING BREASTS. FAMILY AT BEDSIDE.
[2019-02-08 21:16] VITALS: BP 127/83
[2019-02-08] MEDS ORDERED: cefTRIAXone FOR IV USE 1,000 MG in WATER (STERILE) FOR INJECTION 10 ML IV SCH (21:30)
[2019-02-09] MEDS: IBUPROFEN 600 MG (MOTRIN) TAB PO SCH ×3 (00:42→12:21)
[2019-02-09 00:43] VITALS: BP 123/82
[2019-02-09] MEDS: NS IV 1000 ML 1,000 ML IV SCH ×3 (00:43→12:22)
[2019-02-09 04:17] VITALS: BP 126/87
[2019-02-09] MEDS: ACETAMINOPHEN 500 MG TAB (TYLENOL) PO PRN ×3 (05:41→16:38)
[2019-02-09 06:00] LABS: BASOPHILS % (AUTO) 0 % (0-10); EOSINOPHILS # (AUTO) 0.2 10^3/uL (0.0-0.3); EOSINOPHILS % (AUTO) 2 % (0-10); HEMATOCRIT 33 % (35-52); HEMOGLOBIN 10.9 G/DL (11.5-16.0); LYMPHOCYTES # (AUTO) 1.8 X 10^3 (1.0-4.0); LYMPHOCYTES % (AUTO) 19 % (12-44); MEAN CORPUSCULAR HEMOGLOBIN 29 PG (25-34); MEAN CORPUSCULAR HGB CONC 33 G/DL (32-36); MEAN CORPUSCULAR VOLUME 89 FL (80-99); MEAN PLATELET VOLUME 9.5 FL (7.4-10.4); MONOCYTES # (AUTO) 0.7 X 10^3 (0.0-1.0); MONOCYTES % (AUTO) 7 % (0-12); NEUTROPHILS # (AUTO) 6.8 X 10^3 (1.8-7.8); NEUTROPHILS % (AUTO) 72 % (42-75); PLATELET COUNT 156 10^3/uL (130-400); RED CELL DISTRIBUTION WIDTH 14.6 % (10.0-14.5); WHITE BLOOD COUNT 9.5 10^3/uL (4.3-11.0)
[2019-02-09 06:32] LABS: BUN/CREATININE RATIO 9; CARBON DIOXIDE 18 MMOL/L (21-32); CHLORIDE 117 MMOL/L (98-107); CREATININE SERUM 0.66 MG/DL (0.60-1.30); GFR ESTIMATED > 60; GLUCOSE 89 MG/DL (70-105); POTASSIUM 3.7 MMOL/L (3.6-5.0); SODIUM 142 MMOL/L (135-145)
[2019-02-09] MEDS: PRENATAL VITAMIN 1 EA TAB PO SCH (07:30)
[2019-02-09 08:10] VITALS: BP 139/98
--- NOTE | 2019-02-09 08:10 | NUR ---
THIS RN AT BEDSIDE. INTRODUCES SELF TO PT. PHYSICAL ASSESSMENT COMPLETED. DISCUSS PLAN OF CARE, QUESTIONS ANSWERED. CALL LIGHT WITHIN REACH.
--- NOTE | 2019-02-09 09:44 | Progress Note ---
Subjective Subjective/Events-last exam Feeling better. Afebrile since last evening. E coli on urine culture. Focused Exam Lactate Level 02/07/19 21:18: Lactic Acid Level 0.81 Objective Exam Last Set of Vital Signs Vital Signs Date Time Temp Pulse Resp B/P (MAP) Pulse Ox O2 Delivery O2 Flow Rate FiO2 02/09/19 08:10 36.7 97 18 139/98 (112) 98 Room Air Capillary Refill : Less Than 3 Seconds I&O Intake and Output 02/09/19 00:00 Intake Total 5800 ml Output Total 3450 ml Balance 2350 ml Intake Oral 2800 ml IV Total 3000 ml Output Urine Total 3450 ml General: Alert, Oriented X3, Cooperative Psych/Mental Status: Mood NL Results/Procedures Lab Laboratory Tests 02/09/19 05:51: White Blood Count 9.5, Red Blood Count 3.70L, Hemoglobin 10.9L, Hematocrit 33L, Mean Corpuscular Volume 89, Mean Corpuscular Hemoglobin 29, Mean Corpuscular Hemoglobin Concent 33, Red Cell Distribution Width 14.6H, Platelet Count 156, Mean Platelet Volume 9.5, Neutrophils (%) (Auto) 72, Lymphocytes (%) (Auto) 19, Monocytes (%) (Auto) 7, Eosinophils (%) (Auto) 2, Basophils (%) (Auto) 0, Neutrophils # (Auto) 6.8, Lymphocytes # (Auto) 1.8, Monocytes # (Auto) 0.7, Eosinophils # (Auto) 0.2, Basophils # (Auto) 0.0, Sodium Level 142, Potassium Level 3.7, Chloride Level 117H, Carbon Dioxide Level 18L, Anion Gap 7, Blood Urea Nitrogen 6L, Creatinine 0.66, Estimat Glomerular Filtration Rate > 60, BUN/Creatinine Ratio 9, Glucose Level 89, Calcium Level 8.0L Microbiology 02/07/19 Blood Culture - Preliminary, Resulted No growth 02/07/19 Influenza Types A,B Antigen (KERRY) - Final, Complete 02/07/19 Urine Culture - Preliminary, Resulted Escherichia coli Radiology Date of Exam: 02/07/19 CT ABD/PELVIS WO(KIDNEY STONE) INDICATION: Status , with abdominal pain. EXAM: CT abdomen and pelvis obtained without IV contrast. COMPARISON: There is no prior study for comparison. FINDINGS: The visualized portions of the lung bases are clear. There are no pleural fluid collections. There is no free intraperitoneal air. The liver shows no focal abnormality. The gallbladder is contracted. The spleen appears unremarkable. The adrenals and pancreas appear normal. The kidneys bilaterally are unremarkable. There is no radiopaque stone or hydronephrosis. There is no retroperitoneal mass or adenopathy. There is no ascites or abnormal fluid collection. The appendix appears unremarkable. The uterus is prominent in size as expected . There is no pelvic hematoma or free fluid. IMPRESSION: Prominent uterus as expected . No acute abnormality visualized in the abdomen or pelvis. There is no renal stone or hydronephrosis. Assessment/Plan Assessment/Plan (1) fever Status: Acute Assessment & Plan: consistent with pyelonephritis (2) Pyelonephritis Status: Acute Assessment & Plan: ADM: - febrile (Tmax 102), elevated wbc on admit of 11, improved on repeat - urine culture pending; UA c/w UTI - blood cultures pending - started on Rocephin 02/09: - urine culture - E. coli; sensitivities pending - blood cultures neg to date - continue Rocephin - if continued afebrile, likely will DC later today after sensitivities confirmed (3) Hypokalemia Status: Resolved Assessment & Plan: - replace 02/09: RESOLVED Clinical Quality Measures DVT/VTE Risk/Contraindication: Risk Factor Score Per Nursin RFS Level Per Nursing on Admit: 2=Moderate CATRACHO AQUINO DO Feb 09, 2019 09:44
[2019-02-09 12:16] VITALS: BP 148/95
[2019-02-09 16:30] VITALS: BP 139/89
--- NOTE | 2019-02-09 16:45 | NUR ---
THIS RN CALLS DR AQUINO TO DISCUSS PLAN OF PT CARE. DISCUSS URINE SENSITIVITY RESULTS. PT WANTS TO DC TO HOME. DR AQUINO WILL PUT ORDERS IN AND PT MAY GO HOME THIS EVENING.
[2019-02-09] MEDS ORDERED: CEFD300C3 PO (16:49)
--- NOTE | 2019-02-09 16:54 | Short Stay Summary ---
Discharge Summary Hospital Course Final Diagnosis: see Hospital Course Hospital Course Date of Admission: Feb 07, 2019 at 22:40 Admission Diagnosis : 1. fever 2. Pyelonephritis Family Physician/Provider: Lois Thayer MD Date of Discharge: 02/09/19 Discharge Diagnosis: (1) fever Status: Acute Assessment & Plan: consistent with pyelonephritis (2) Pyelonephritis Status: Acute Assessment & Plan: ADM: - febrile (Tmax 102), elevated wbc on admit of 11, improved on repeat - urine culture pending; UA c/w UTI - blood cultures pending - started on Rocephin 02/09: - urine culture - E. coli; pansensitive - blood cultures neg to date - continue Rocephin - continued afebrile, DC later today w/ Rx for Omnicef (3) Hypokalemia Status: Resolved Assessment & Plan: - replace 02/09: RESOLVED Hospital Course: see Discharge Diagnosis Labs and Pending Lab Test: Laboratory Tests 02/09/19 05:51: White Blood Count 9.5, Red Blood Count 3.70L, Hemoglobin 10.9L, Hematocrit 33L, Mean Corpuscular Volume 89, Mean Corpuscular Hemoglobin 29, Mean Corpuscular Hemoglobin Concent 33, Red Cell Distribution Width 14.6H, Platelet Count 156, Mean Platelet Volume 9.5, Neutrophils (%) (Auto) 72, Lymphocytes (%) (Auto) 19, Monocytes (%) (Auto) 7, Eosinophils (%) (Auto) 2, Basophils (%) (Auto) 0, Neutrophils # (Auto) 6.8, Lymphocytes # (Auto) 1.8, Monocytes # (Auto) 0.7, Eosinophils # (Auto) 0.2, Basophils # (Auto) 0.0, Sodium Level 142, Potassium Level 3.7, Chloride Level 117H, Carbon Dioxide Level 18L, Anion Gap 7, Blood Urea Nitrogen 6L, Creatinine 0.66, Estimat Glomerular Filtration Rate > 60, BUN/Creatinine Ratio 9, Glucose Level 89, Calcium Level 8.0L Microbiology 02/07/19 Blood Culture - Preliminary, Resulted No growth 02/07/19 Influenza Types A,B Antigen (KERRY) - Final, Complete 02/07/19 Urine Culture - Final, Complete Escherichia coli Home Meds Active Vitamin Tablet ( Vit No.124/Iron/FA) 1 Each Tablet 1 Each PO DAILY Ibu (Ibuprofen) 600 Mg Tablet 600 Mg PO Q6HR PRN Assessment/Pt Instructions Follow up with Blanca Nielson in 1 week. Discharge Instructions Discharge Diet: No Restrictions Discharge Physical Examination General Appearance: Alert, Oriented X3, Cooperative Psych/Mental Status: Mood NL Allergies: Coded Allergies: No Known Drug Allergies (Unverified , 02/01/19) Discharge Summary Date of Admission Feb 07, 2019 at 22:40 Date of Discharge Clinical Quality Measures DVT/VTE Risk/Contraindication: Risk Factor Score Per Nursin RFS Level Per Nursing on Admit: 2=Moderate CATRACHO AQUINO DO Feb 09, 2019 16:54
== END 2019-02-09 17:45 | disposition home or self-care (01) ==
LOC: EDUNIT# 20:20 → ER 20:21 → WS 22:40
PROVIDERS: ADMIT Family Medicine; ATTEND Family Medicine
DX: N12 Tubulo-interstitial nephritis, not specified as acute or chronic (principal); N39.0 Urinary tract infection, site not specified; E78.5 Hyperlipidemia, unspecified; J30.9 Allergic rhinitis, unspecified; F32.9 Major depressive disorder, single episode, unspecified; Z79.899 Other long term (current) drug therapy
CPT/HCPCS: 36415; 71046; 74176; 80048; 80053; 81000; 82150; 83605; 83690; 83735; 83880; 84443; 85007; 85025; 85027; 85610; 85730; 87040; 87077; 87088; 87186; 87804; 93041; 94664; 96361; 96374; 96375; G0378

== ENCOUNTER 2022-06-09 10:10 | Outpatient (CLI) | payer MEDICAID ==
[~2022-06-09] VITALS: Ht 162.5 cm; Wt 82.1 kg
[~2022-06-09 10:10] MED LIST changes: +CEFD300C3 PO
[2022-06-09] MEDS ORDERED: LABE100T9 PO (10:31)
[2022-06-09 10:35] VITALS: BP 137/63
[2022-06-09 11:45] VITALS: BP 133/77
--- NOTE | 2022-06-10 08:16 | Physician Query-Final Dx ---
LILIAM06/10/22 0816: Clinic Account Progress/Dx Physician Query: Please give diagnosis Please include # weeks gestation Date of Service Jun 09, 2022 at 10:10 CATRACHO AQUINO DO 06/11/2216: Clinic Account Progress/Dx DIAGNOSIS: Diagnosis 36 wk GA vaginal spotting reassuring monitoring Jun 10, 2022 08:16 CATRACHO AQUINO DO Jun 11, 2022 09:16
== END 2022-06-09 11:45 | disposition home or self-care (01) ==
LOC: WSo 10:10 → LDRP 10:10 → WSo 11:45
PROVIDERS: ATTEND Family Medicine
DX: O26.853 Spotting complicating pregnancy, third trimester (principal); Z3A.36 36 weeks gestation of pregnancy
CPT/HCPCS: 99213

== ENCOUNTER 2022-06-21 19:29 | Inpatient (IN) | payer MEDICAID ==
[~2022-06-21] VITALS: Ht 162.5 cm; Wt 84.9 kg
[~2022-06-21 19:29] MED LIST changes: +LABE100T9 PO
[2022-06-21] MEDS ORDERED: MINERAL OIL 30 ML UDC TOP PRN (21:00)
[2022-06-21] MEDS ORDERED: AMPICILLIN FOR IV USE 2,000 MG in NS (IVPB) 50 ML IV ONE (21:00)
[2022-06-21] MEDS ORDERED: D5 LR IV SOLUTION 1,000 ML IV SCH (21:00)
[2022-06-21] MEDS ORDERED: LACTATED RINGERS 1,000 ML IV SCH (21:00)
[2022-06-21 21:13] LABS: HEMOGLOBIN 12.9 g/dL (11.5-16.0)
[2022-06-21 21:15] LABS: BASOPHILS % (AUTO) 0 % (0-10); EOSINOPHILS # (AUTO) 0.1 10^3/uL (0.0-0.3); EOSINOPHILS % (AUTO) 1 % (0-10); HEMATOCRIT 38 % (35-52); LYMPHOCYTES # (AUTO) 2.9 10^3/uL (1.0-4.0); LYMPHOCYTES % (AUTO) 37 % (12-44); MEAN CORPUSCULAR HEMOGLOBIN 28 pg (25-34); MEAN CORPUSCULAR HGB CONC 34 g/dL (32-36); MEAN CORPUSCULAR VOLUME 83 fL (80-99); MEAN PLATELET VOLUME 10.5 fL (9.0-12.2); MONOCYTES # (AUTO) 0.7 10^3/uL (0.0-1.0); MONOCYTES % (AUTO) 9 % (0-12); NEUTROPHILS # (AUTO) 4.2 10^3/uL (1.8-7.8); NEUTROPHILS % (AUTO) 53 % (42-75); PLATELET COUNT 185 10^3/uL (130-400); WHITE BLOOD COUNT 7.9 10^3/uL (4.3-11.0)
[2022-06-21 21:53] VITALS: BP 145/89
[2022-06-21] MEDS ORDERED: CATHETER FLUSH 10 ML SYR IV SCH (22:00)
[2022-06-21 22:30] VITALS: BP 140/82
[2022-06-21 23:40] VITALS: BP 138/88
[2022-06-22] VITALS (9 sets, daily range): BP systolic 128–168; BP diastolic 70–96
[2022-06-22] MEDS ORDERED: OXYTOCIN PRE-MIX DRIP 500 ML IV ONE ×2 (00:43→01:49)
[2022-06-22] MEDS ORDERED: AMPICILLIN FOR IV USE 1,000 MG in NS (IVPB) 50 ML IV SCH (01:00)
--- NOTE | 2022-06-22 01:24 | OB Labor & Delivery Record ---
Vag Delivery Note Vag Delivery Note Date of Delivery: 06/22/22 Preoperative Diagnosis: Ivanna Verdugo is a (27 /Para / ,Gestational Age (wks)38with 2 days Postoperative Diagnosis: Same Surgeon: MICHELLE SIMS Anesthesia: None Delivery Type: Spontaneous vaginal delivery Findings: Viable female infant, apgars 9/9, weight 6#4 Lacerations: None Intact placenta with 3 vessel cord. No nuchal cord, body cord or shoulder dystocia Estimated Blood Loss: 200 ml Complications: None Condition: Stable Description of Procedure: The patient is a 27 year old female who presented for induction of labor due to HTN complicating . However, prior to starting cervical ripening she was found to be cm dilated, so meds were deferred until the morning. In spite of this, she progressed in spontaneous labor. Her labor course was remarkable for precipitous course, changing from 4 cm to delivered in one hour, and meconium stained fluid. I was called at 0041 and informed that she had bulging bag and was thought to be complete, as I was coming to the hospital, at 0044 I received call that has delivered. Per nursing, upon delivery, the was vigorous and placed on maternal chest and the mouth and nares were bulb suctioned. After a delay cord was doubly clamped and cut and the moved to the warmer. I arrived at 0056 and was on warmer due to grunting and placenta had not yet delivered. An intact placenta with 3-vessel cord delivered via Dennis and there was found to be minimal bleeding.~ Vigorous fundal massage was performed and the fundus was found to be firm. IV oxytocin was given. Examination of the vagina and perineum revealed no lacerations. Following the delivery, sponge, instrument and needle counts were correct. Mom and baby were both in stable condition in the labor suite. Vitals - Labs Vital Signs - I&O Vital Signs Date Time Temp Pulse Resp B/P (MAP) Pulse Ox O2 Delivery O2 Flow Rate FiO2 06/21/22 23:40 111 18 138/88 (105) 06/21/22 22:30 111 18 140/82 (101) 06/21/22 21:53 36.5 108 18 99 Room Air Labs Laboratory Tests 06/21/22 21:05: White Blood Count 7.9, Red Blood Count 4.60, Hemoglobin 12.9, Hematocrit 38, Mean Corpuscular Volume 83, Mean Corpuscular Hemoglobin 28, Mean Corpuscular Hemoglobin Concent 34, Red Cell Distribution Width 14.1, Platelet Count 185, Mean Platelet Volume 10.5, Immature Granulocyte % (Auto) 0, Neutrophils (%) (Auto) 53, Lymphocytes (%) (Auto) 37, Monocytes (%) (Auto) 9, Eosinophils (%) (Auto) 1, Basophils (%) (Auto) 0, Neutrophils # (Auto) 4.2, Lymphocytes # (Auto) 2.9, Monocytes # (Auto) 0.7, Eosinophils # (Auto) 0.1, Basophils # (Auto) 0.0, Immature Granulocyte # (Auto) 0.0, Percent Immature Platelet Fraction 3.2 06/21/22 21:15: MICHELLE SIMS MD Jun 22, 2022 01:24
--- NOTE | 2022-06-22 01:31 | History & Physical-OB ---
OB - Chief Complaint & HPI Date/Time Date of Admission: Date of Admission: Jun 21, 2022 at 19:29 Date seen by a Provider: Jun 22, 2022 Time Seen by a Provider: 00:56 Chief Complaint/History Hx : 3 Hx Para: 1 Expected Date of Delivery: Jul 04, 2022 Gestational Age in Weeks: 38 Gestational Age in Days: 2 Other reason for admission: 27 yo admitted at 38w1d for planned induction of labor per [facility] recommendations due to hypertension complicated . She had an unfavorable cervix in clinic, so cytotec was planned, however, on initial check her cervix was 4 cm and 80% effaced per nursing, so induction meds were deferred until the morning. History of Labs A+, antibody neg, RI. HIV/hepB/RPR NR. GC/chlamydia neg. 1 hour glucola 131, 3 hour with fasting 106, remainder normal. GBS positive. Other She has been following with highway research engineer for early onset HTN requiring labetalol, and had reassuring growth ultrasounds q4 weeks and normal weekly BPPs. Allergies and Home Medications Allergies Coded Allergies: No Known Drug Allergies (Unverified , 02/01/19) Patient Home Medication List Home Medication List Reviewed: Yes Labetalol HCl (Labetalol HCl) 100 Mg Tablet, 100 MG PO BID, (Reported) Entered as Reported by: TAM NIEVES on 06/09/22 1031 Last Action: Reviewed Vit No.124/Iron/FA ( Vitamin Tablet) 1 Each Tablet, 1 EACH PO DAILY Prescribed by: MICHELLE SIMS on 02/03/19 1315 Last Action: Reviewed OB - History Hx of Present Ultrasounds: Normal mid trimester US Obstetrical Complications: Gestational Hypertension Information Induced Hypertension: Yes Maternal Gestational Diabetes: No Hemorrhage: No Obstetrical History Hx : 3 Hx Para: 1 Hx # Term Pregnancies: 1 Hx # Pregnancies: 0 Number of Living Children: 1 Hx Termination: No Hx Total # of Abortions (Spona: 1 Hx Multiple Gestation: No Hx Ectopic : No Hx Stillbirth: No Hx Complication: No Hx Induced Hypertens: Yes Hx Maternal Gestational Diabet: No Hx Hemorrhage: No Delivery History Hx Dystocia: No Hx Forceps Assisted Delivery: No Hx Vacuum Extraction Assisted: No Hx Placenta Abnormality: No Hx Distress: No Hx Large For Gestational Age I: No Hx Small for Gestational Age I: No Hx Section: No Hx Vaginal Delivery Post C-Sec: No Hx Blood Disorders: No Adverse Rxn to Tranfusion: No Patient Past Medical History PMHx: Depression SurgHx: None Social History/Family History Alcohol Use: Denies Use Recreational Drug Use: No Smoking Cessation: Never smoker 2nd Hand Smoke Exposure: No Immunizations Influenza Vaccine Up-to-Date: Yes; Up-to-Date First/Initial COVID19 Vaccine: 10/04/2020 Second COVID19 Vaccination: 09/07/2020 COVID19 Booster (Date): 01/26/2022 (bivalent) COVID19 Vaccine [employer]: [email or web address] Hepatitis A: Yes Hepatitis B: Yes Tetanus Booster (TDap): Less than 5yrs (05/04/2022) Rubella: immune RPR/VDRL: Negative GBS Status: Positive HBsAG: Negative OB - Admission Exam Physical Exam Vitals: Vital Signs 06/21/22 06/21/22 21:53 23:40 Temp 36.5 Pulse 111 Resp 18 B/P (MAP) 138/88 (105) Pulse Ox 99 O2 Delivery Room Air HEENT: NCAT Cervical Dilatation: 4cm (per nursing) Effacement: Other (80) Labs Laboratory Tests Test 06/21/22 21:05 06/21/22 21:15 Range/Units White Blood Count 7.9 4.3-11.0 10^3/uL Red Blood Count 4.60 3.80-5.11 10^6/uL Hemoglobin 12.9 11.5-16.0 g/dL Hematocrit 38 35-52 % Mean Corpuscular Volume 83 80-99 fL Mean Corpuscular Hemoglobin 28 25-34 pg Mean Corpuscular Hemoglobin Concent 34 32-36 g/dL Red Cell Distribution Width 14.1 10.0-14.5 % Platelet Count 185 130-400 10^3/uL Mean Platelet Volume 10.5 9.0-12.2 fL Immature Granulocyte % (Auto) 0 % Neutrophils (%) (Auto) 53 42-75 % Lymphocytes (%) (Auto) 37 12-44 % Monocytes (%) (Auto) 9 0-12 % Eosinophils (%) (Auto) 1 0-10 % Basophils (%) (Auto) 0 0-10 % Neutrophils # (Auto) 4.2 1.8-7.8 10^3/uL Lymphocytes # (Auto) 2.9 1.0-4.0 10^3/uL Monocytes # (Auto) 0.7 0.0-1.0 10^3/uL Eosinophils # (Auto) 0.1 0.0-0.3 10^3/uL Basophils # (Auto) 0.0 0.0-0.1 10^3/uL Immature Granulocyte # (Auto) 0.0 0.0-0.1 10^3/uL Percent Immature Platelet Fraction 3.2 0.0-7.6 % OB - Assessment/Plan/Diagnosis Assessment Admission Dx Hypertension complicating Plan for induction of labor 38 weeks gestation Admission Status: Inpatient Order (span 2 midnights) Reason for Inpatient Admission: Labor, delivery and course MICHELLE SIMS MD Jun 22, 2022 01:31
[2022-06-22] MEDS ORDERED: BENZOCAINE/MENTHOL (DERMOPLAST) 56 ML CAN TP PRN (01:45)
[2022-06-22] MEDS ORDERED: OXYTOCIN PRE-MIX DRIP 500 ML IV SCH (01:45)
[2022-06-22] MEDS ORDERED: WITCH HAZEL(TUCKS) 40 EA JAR TOP PRN (01:45)
[2022-06-22] MEDS: IBUPROFEN 600 MG (MOTRIN) TAB PO PRN (04:00)
[2022-06-22] MEDS ORDERED: CATHETER FLUSH 10 ML SYR IV SCH (06:00)
[2022-06-22] MEDS ORDERED: PATIENT MAY USE OWN MEDS, ALL MC SCH (07:30)
[2022-06-22] MEDS: DOCUSATE SODIUM 100 MG (COLACE) CAP PO SCH ×2 (08:39→21:25)
[2022-06-22] MEDS: PRENATAL VITAMIN 1 EA TAB PO SCH (08:39)
[2022-06-22] MEDS ORDERED: LABETALOL 200 MG (NORMODYNE) TAB PO SCH (09:00)
[2022-06-22] MEDS: LABETALOL 100MG TABLET PO SCH ×2 (09:13→21:25)
[2022-06-23 01:10] VITALS: BP 145/84
[2022-06-23 05:45] LABS: BASOPHILS % (AUTO) 0 % (0-10); EOSINOPHILS # (AUTO) 0.1 10^3/uL (0.0-0.3); EOSINOPHILS % (AUTO) 2 % (0-10); HEMATOCRIT 35 % (35-52); HEMOGLOBIN 11.9 g/dL (11.5-16.0); LYMPHOCYTES # (AUTO) 2.5 10^3/uL (1.0-4.0); LYMPHOCYTES % (AUTO) 37 % (12-44); MEAN CORPUSCULAR HEMOGLOBIN 28 pg (25-34); MEAN CORPUSCULAR HGB CONC 34 g/dL (32-36); MEAN CORPUSCULAR VOLUME 83 fL (80-99); MONOCYTES # (AUTO) 0.4 10^3/uL (0.0-1.0); MONOCYTES % (AUTO) 6 % (0-12); NEUTROPHILS # (AUTO) 3.7 10^3/uL (1.8-7.8); NEUTROPHILS % (AUTO) 55 % (42-75); PLATELET COUNT 151 10^3/uL (130-400); WHITE BLOOD COUNT 6.8 10^3/uL (4.3-11.0)
--- NOTE | 2022-06-23 08:13 | Discharge Inst-Women's Service ---
Discharge Inst-Women's Serv Depart Medication/Instructions New, Converted or Re-Newed RX: Other Instructions May take ibuprofen 200mg 2 or 3 tabs every 6 hours if needed for pain or cramps Problems Reviewed?: Yes Consults/Follow Up Additional Follow Up: Yes (Dr Thayer in 6 weeks. Also have bp checked in clinic 1 week) Activity Activity: Activity as Tolerated Driving Instructions: No Driving for 1 Week Nothing Inside Vagina: No [place] (for 6 weeks) Diet Discharge Diet: Regular Diet Return to The Hospital For: as below Symptoms to Report to : Bleeding Excessive, Fever Over 101 Degrees F, Vaginal Discharge Foul For Any Problems or Questions: Contact Your Physician JYOTI ONEAL MD Jun 23, 2022 08:13
--- NOTE | 2022-06-23 08:16 | Discharge Summary ---
Diagnosis/Chief Complaint Date of Admission Jun 21, 2022 at 19:29 Date of Discharge Jun 23, 2022 Admission Diagnosis Admission Diagnosis 1. IUP at 38 weeks 2. PIH 3. GBS positive Discharge Diagnosis 1. IUP at 38 weeks 2. PIH 3. GBS positive (perineal) Chief Complaint/HPI Chief Complaint/HPI 27 yo G3 now T2L2 who was induced for labor on evening of 06/21 due to PIH. Discharge Summary-OBS Procedures 1. Discharge Physical Examination Allergies: Coded Allergies: No Known Drug Allergies (Unverified , 02/01/19) Vitals & I&Os Vital Sign - Last 12Hours Date Time Temp Pulse Resp B/P (MAP) Pulse Ox O2 Delivery O2 Flow Rate FiO2 06/23/22 01:10 36.4 124 18 145/84 (104) 98 Room Air General Appearance: No Acute Distress Respiratory: Clear to Auscultation Cardiovascular: Regular Rate Abdominal: Soft (with uterus firm) Hospital Course Was the Problem List Reviewed?: Yes Her Hg on 06-21 was 12.9 compared to 06-23 of 11.9 Labs Laboratory Tests 06/23/22 05:23: White Blood Count 6.8, Red Blood Count 4.23, Hemoglobin 11.9, Hematocrit 35, Mean Corpuscular Volume 83, Mean Corpuscular Hemoglobin 28, Mean Corpuscular Hemoglobin Concent 34, Red Cell Distribution Width 14.1, Platelet Count 151, Mean Platelet Volume 10.0, Immature Granulocyte % (Auto) 0, Neutrophils (%) (Auto) 55, Lymphocytes (%) (Auto) 37, Monocytes (%) (Auto) 6, Eosinophils (%) (Auto) 2, Basophils (%) (Auto) 0, Neutrophils # (Auto) 3.7, Lymphocytes # (Auto) 2.5, Monocytes # (Auto) 0.4, Eosinophils # (Auto) 0.1, Basophils # (Auto) 0.0, Immature Granulocyte # (Auto) 0.0 Discharge Instructions to patient/family Please see electronic discharge instructions given to patient. Discharge Medications Reviewed and agree with Discharge Medication list on patient's Discharge Instruction sheet JYOTI ONEAL MD Jun 23, 2022 08:16
[2022-06-23] MEDS: PRENATAL VITAMIN 1 EA TAB PO SCH (08:56)
[2022-06-23] MEDS: IBUPROFEN 600 MG (MOTRIN) TAB PO PRN (08:56)
[2022-06-23] MEDS: DOCUSATE SODIUM 100 MG (COLACE) CAP PO SCH (08:56)
[2022-06-23] MEDS: LABETALOL 100MG TABLET PO SCH (08:56)
[2022-06-23 08:57] VITALS: BP 162/88
[2022-06-23 12:00] VITALS: BP 140/79
== END 2022-06-23 14:30 | disposition home or self-care (01) | DRG 807 ==
LOC: LDRP 19:29
PROVIDERS: ADMIT Family Medicine; ATTEND Family Medicine
PROC: 10E0XZZ Delivery of Products of Conception, External Approach (ICD-10-PCS; principal; 2022-06-22)
PROC: 3E033VJ Introduction of Other Hormone into Peripheral Vein, Percutaneous Approach (ICD-10-PCS; 2022-06-22)
DX: O13.4 Gestational [pregnancy-induced] hypertension without significant proteinuria, complicating childbirth (principal); Z37.0 Single live birth; Z3A.38 38 weeks gestation of pregnancy; O77.0 Labor and delivery complicated by meconium in amniotic fluid; O99.824 Streptococcus B carrier state complicating childbirth
CPT/HCPCS: 36415; 85025; 86780; 86850; 86900; 86901